=== PATIENT | female | born 1950 | race Two or more races ===

== ENCOUNTER 2022-03-13 11:03 | Inpatient (IN) | payer OTHER, MEDICAID ==
[~2022-03-13] VITALS: Ht 152.4 cm; Wt 55.4 kg
[2022-03-13] MEDS ORDERED: SODIUM CHLORIDE 0.9% 1,000 ML IV ONE (11:45)
[2022-03-13 11:51] LABS: Basophils # (auto) 0 10 ^3/uL (0-0.2); Basophils % (auto) 0.7 % (0.0-2.0); Eosinophils # (auto) 0.1 10 ^3/uL (0-0.8); Eosinophils % (auto) 3.2 % (0.0-7.0); Hemoglobin 11.9 g/dL (12.2-16.2); Lymphocytes # (auto) 0.8 10 ^3/uL (0.4-5.4); Lymphocytes % (auto) 21.2 % (10.0-50.0); Mean Corpuscular Hemoglobin 33.2 pg (28.0-32.0); Mean Corpuscular Hgb Conc. 35.1 g/dL (32.0-36.0); Mean Corpuscular Volume 94.6 fL (80.0-100.0); Monocytes # (auto) 0.6 10 ^3/uL (0-1.3); Monocytes % (auto) 15.2 % (0.0-12.0); Neutrophils # (auto) 2.2 10 ^3/uL (1.6-8.6); Neutrophils % (auto) 59.7 % (37.0-80.0); Nucleated Red Blood Cells % 0.1 %; Red Blood Cells 3.59 10^6/uL (4.0-5.20); White Blood Cell 3.7 10^3/uL (4.4-10.8)
[2022-03-13 12:06] LABS: BUN/Creatinine Ratio 18.2; Calcium 10.3 mg/dL (8.5-10.1); Potassium 3.4 mmol/L (3.5-5.1)
[2022-03-13 12:09] LABS: Bilirubin, Total 0.5 mg/dL (0.2-1.0); Total Protein 6.9 g/dL (6.4-8.2)
[2022-03-13] MEDS ORDERED: ONDANSETRON HCL 4 MG/2 ML VIAL IV ONE (13:45)
[2022-03-13] MEDS: MORPHINE SULFATE INJECTION 2 MG/ML SYRG IV PRN ×2 (14:23→22:45)
[2022-03-13] MEDS: SODIUM CHLORIDE 0.9% 1,000 ML IV SCH (15:15)
[2022-03-13] MEDS ORDERED: MORPHINE SULFATE INJECTION 2 MG/ML SYRG IV PRN ×2 (15:15)
[2022-03-13] MEDS ORDERED: DEXTROSE (50%) 50ML SYRG IV PRN (15:15)
[2022-03-13 16:06] LABS: Cholesterol 182 mg/dL (< 200); HDL Cholesterol 30 mg/dL (40-59); LDL Cholesterol 112 mg/dL (< 100); Triglycerides 216 mg/dL (< 150)
[2022-03-13] MEDS: ACCU-CHEK COMFORT CURVE STRIP VI SCH (19:30)
[2022-03-13] MEDS: InsuLIN REG 1unit/0.01ml Soln (100units/ml) SC SCH (19:30)
[2022-03-14] MEDS: ACCU-CHEK COMFORT CURVE STRIP VI SCH ×3 (00:04→11:20)
[2022-03-14] MEDS: SODIUM CHLORIDE 0.9% 1,000 ML IV SCH ×3 (01:15→21:15)
[2022-03-14 02:04] VITALS: BP 107/58
[2022-03-14 05:00] VITALS: BP 96/57
[2022-03-14] MEDS: InsuLIN REG 1unit/0.01ml Soln (100units/ml) SC SCH ×3 (06:00→11:19)
[2022-03-14 09:00] VITALS: BP 105/67
[2022-03-14] MEDS ORDERED: IOHEXOL 300 MG/ML 100ML BOTTLE IJ ONE (10:59)
[2022-03-14] MEDS: D5W/SOD CHLO 0.9% 1,000 ML IV SCH ×2 (12:32→20:40)
[2022-03-14 13:00] VITALS: BP 116/65
[2022-03-14 17:00] VITALS: BP 127/76
[2022-03-14 22:00] VITALS: BP 102/41
[2022-03-15] MEDS: D5W/SOD CHLO 0.9% 1,000 ML IV SCH ×2 (04:53→12:30)
[2022-03-15 05:00] VITALS: BP 105/56
[2022-03-15] MEDS: SODIUM CHLORIDE 0.9% 1,000 ML IV SCH (06:56)
[2022-03-15 09:00] VITALS: BP 97/34
[2022-03-15 11:32] VITALS: BP 97/34
== END 2022-03-15 12:49 | disposition home or self-care (01) | DRG 391 ==
LOC: EDBD 11:03 → ER 11:03 → OVERFLOW 15:13 → CENTRAL 17:33
PROVIDERS: ADMIT Registered Nurse; ATTEND Family Medicine
DX: K22.2 Esophageal obstruction (principal); E43 Unspecified severe protein-calorie malnutrition; C34.12 Malignant neoplasm of upper lobe, left bronchus or lung; D63.8 Anemia in other chronic diseases classified elsewhere; E11.22 Type 2 diabetes mellitus with diabetic chronic kidney disease; E88.09 Other disorders of plasma-protein metabolism, not elsewhere classified; I12.9 Hypertensive chronic kidney disease with stage 1 through stage 4 chronic kidney disease, or unspecified chronic kidney disease; N18.2 Chronic kidney disease, stage 2 (mild); Z85.850 Personal history of malignant neoplasm of thyroid; Z92.3 Personal history of irradiation; Z68.23 Body mass index [BMI] 23.0-23.9, adult; Z20.822 Contact with and (suspected) exposure to COVID-19
CPT/HCPCS: 36415; 71045; 71260; 80053; 80061; 82962; 83036; 83735; 83880; 84484; 85025; 92610; 93005; 96361; 96374; G0378; J2405